=== PATIENT | female | born 2000 | race Two or more races ===

== ENCOUNTER 2020-08-26 01:19 | Emergency (ER) | payer BC ==
[~2020-08-26] VITALS: Ht 154.9 cm; Wt 83.0 kg
--- NOTE | 2020-08-26 01:20 | NUR ---
FAMILY IN LOBBY
[2020-08-26] MEDS ORDERED: CHARCOAL/SORBITOL 50 GM/240 ML PO ONE (01:30)
--- NOTE | 2020-08-26 01:37 | NUR ---
PT BIB [facility] FOR [facility]. PT REPORTS SHE TOOK UNKNOWN AMOUNT OF TRAZADONE TO HURT HERSELF. DR HANSON TO BEDSIDE. 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 NSR NOTED. VS STABLE. SITTER AT DOOR. WILL CONTINUE TO MONITOR.
--- NOTE | 2020-08-26 01:45 | NUR ---
PT RESTING IN ROOM. NO ACUTE DISTRESS NOTED. SITTER AT DOOR. WILL CONTINUE TO MONITOR.
[2020-08-26 01:47] LABS: BASOPHILS % (AUTO) 1 % (0-1); EOSINOPHILS % (AUTO) 1 % (1-7); LYMPHOCYTES % (AUTO) 35 % (22-44); MEAN CORPUSCULAR HEMOGLOBIN 28.9 pg (27.0-34.8); MEAN CORPUSCULAR HGB CONC 33.3 g/dL (32.4-35.8); MEAN PLATELET VOLUME 8.6 fL (7.4-10.4); MONOCYTES % (AUTO) 8 % (2-9); NEUTROPHILS % (AUTO) 55 % (42-75); PLATELET COUNT 346 x10^3/uL (130-400); RED BLOOD COUNT 4.77 x10^6/uL (3.82-5.3); RED CELL DISTRIBUTION WIDTH 13.5 % (9.6-15.2)
[2020-08-26 01:50] LABS: MD NO
[2020-08-26 01:56] LABS: ALANINE AMINOTRANSFERASE 26 U/L (12-78); ANION GAP 6 mmol/L (5-15); CALCIUM 8.9 mg/dL (8.5-10.1); CHLORIDE 112 mmol/L (98-107)
[2020-08-26 02:01] LABS: ALKALINE PHOSPHATASE 89 U/L (45-117); BILIRUBIN,TOTAL 0.2 mg/dL (0.2-1.0); CREATININE 0.64 mg/dL (0.55-1.02); TOTAL PROTEIN 7.6 g/dL (6.4-8.2)
[2020-08-26 02:02] LABS: SALICYLATE LEVEL < 1.7 mg/dL (2.8-20.0)
--- NOTE | 2020-08-26 02:10 | NUR ---
BEDSIDE REPORT GIVEN TO KATIA NAVA
--- NOTE | 2020-08-26 02:17 | NUR ---
POSION CONTROL CONTACTED REGARDING PATIENT'S HOME MEDICATIONS; KATIA WYNNE
--- NOTE | 2020-08-26 02:24 | NUR ---
PATIENT'S AT HOME MEDICATIONS INCLUDE: XANAX 0.25MG LITHIUM 450MG X2 AT NIGHT VRAYLAR 1.5MG AT NIGHT AMBIEN 10MG AT NIGHT TRAZADONE 50MG AT NIGHT
--- NOTE | 2020-08-26 02:27 | NUR ---
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 MONITOR FOR QT PROLONG AND TREAT WITH IV MAG.
--- NOTE | 2020-08-26 03:10 | NUR ---
PT RESTING IN BED, PT ON MONITOR WITH PT VSS. PT DENIED ANY WANTS OR NEEDS AT THIS TIME. PT DENIED ANY LUIS ALBERTO SYMTOMS. PT STATED "SHE WAS JUST TIRED"
--- NOTE | 2020-08-26 04:30 | NUR ---
PT RESTING IN BED, PT ON MONITOR WITH PT VSS. PT DENIED ANY WANTS OR NEEDS AT THIS TIME. PT DENIED ANY LUIS ALBERTO SYMTOMS. PT AGIAN STATED "SHE WAS JUST TIRED"
[2020-08-26 05:01] LABS: AMPHETAMINE SCREEN, URINE Negative (Negative); BARBITURATE SCREEN, URINE Negative (Negative); BENZODIAZEPINE SCREEN, URINE Negative (Negative); CANNABINOID SCREEN, URINE Negative (Negative); COCAINE SCREEN, URINE Negative (Negative); METHADONE SCREEN, URINE Negative (Negative); OPIATE SCREEN, URINE Negative (Negative)
--- NOTE | 2020-08-26 06:41 | NUR ---
REC'D REPORT FROM KATIA NAVA. PT RESTING IN BED. SITTER AT DOOR.
--- NOTE | 2020-08-26 06:58 | NUR ---
PT RESTING IN BED, PT IN SI SECURE ROOM WITH SITTER AT DOOR, PT DENIED ANY LUIS ALBERTO ISSUES AT THIS TIME.
--- NOTE | 2020-08-26 07:52 | NUR ---
patient in bed on monitor rails up. report from chelita. patient awaiting telepsych. she is oriented and detailing of her depression since 11. she states diagnosed with bipolar at 19 and that she has struggled with this for a long time. states not feeling suicidal now.
--- NOTE | 2020-08-26 08:32 | NUR ---
GAVE BREAKFAST, ATE ALL
--- NOTE | 2020-08-26 09:33 | NUR ---
LET PATIETN FAMILY VISIT, DAD AT BEDSIDE.
--- NOTE | 2020-08-26 10:26 | NUR ---
DAD AT BEDSIDE. THEY ARE CHATTING CALMLY
--- NOTE | 2020-08-26 11:08 | NUR ---
ordered meal tray.
--- NOTE | 2020-08-26 11:33 | NUR ---
ronan talking to pt
--- NOTE | 2020-08-26 11:48 | NUR ---
patients father went home to get mom and will return. patient is calm in bed.
[2020-08-26 11:53] VITALS: BP 112/78
--- NOTE | 2020-08-26 11:56 | NUR ---
helping patient get belongings. tbd once parents here to pick her up. gave her lunch tray
--- NOTE | 2020-08-26 12:39 | NUR ---
still waiting on parents to take her home. belongings returned.
--- NOTE | 2020-08-26 13:05 | NUR ---
MOM HERE. DISCHARGE REVIEWED.
== END 2020-08-26 13:23 | disposition home or self-care (01) ==
LOC: ED 02:10
DX: T43.211A Poisoning by selective serotonin and norepinephrine reuptake inhibitors, accidental (unintentional), initial encounter (principal); R94.31 Abnormal electrocardiogram [ECG] [EKG]
CPT/HCPCS: 36415; 80053; 80178; 80299; 80307; 80320; 80329; 84703; 85025; 93005; 99285; G0480

== ENCOUNTER 2020-11-14 05:12 | Emergency (ER) | payer BC ==
[~2020-11-14] VITALS: Ht 154.9 cm; Wt 91.9 kg
[2020-11-14 05:14] VITALS: BP 126/61
[2020-11-14] MEDS ORDERED: ACETAMINOPHEN 500 MG TABLET ONE (05:47)
[2020-11-14] MEDS ORDERED: IBUPROFEN 800 MG TABLET ONE (05:47)
[2020-11-14] MEDS ORDERED: ACETAMINOPHEN 325 MG TABLET PO ONE (06:00)
[2020-11-14] MEDS ORDERED: IBUPROFEN 200 MG TABLET PO ONE (06:00)
--- NOTE | 2020-11-14 06:02 | NUR ---
Pt to ER with c/o of having QUAN, SOB, CP after getting her covid vaccine yesterday. EKG done in triage, pt room. Pt in gown, on monitor. Warm blanket given. EKG done. Pt medicated per order Pt with intermittent CP. Physician aware. No new orders.
--- NOTE | 2020-11-14 06:54 | NUR ---
REPORT FROM JAVAD. PT RESTING.
--- NOTE | 2020-11-14 07:15 | NUR ---
pt ambulated to bathroom w steady gait
--- NOTE | 2020-11-14 07:44 | NUR ---
Patient/Caregiver given discharge instructions and they have confirmed that they understand the instructions. Patient ambulatory with steady gait.
== END 2020-11-14 07:45 | disposition home or self-care (01) ==
LOC: ED 05:39
DX: R06.00 Dyspnea, unspecified (principal); M79.10 Myalgia, unspecified site; T88.1XXA Other complications following immunization, not elsewhere classified, initial encounter; R00.0 Tachycardia, unspecified
CPT/HCPCS: 71045; 93005; 99283

== ENCOUNTER 2021-02-12 22:00 | Emergency (ER) | payer BC ==
[~2021-02-12] VITALS: Ht 154.9 cm; Wt 91.3 kg
[2021-02-12 22:42] LABS: MEAN CORPUSCULAR HEMOGLOBIN 29.4 pg (27.0-34.8); MEAN CORPUSCULAR HGB CONC 33.6 g/dL (32.4-35.8); MEAN PLATELET VOLUME 9.3 fL (7.4-10.4); PLATELET COUNT 223 x10^3/uL (130-400); RED BLOOD COUNT 5.16 x10^6/uL (3.82-5.3); RED CELL DISTRIBUTION WIDTH 14.5 % (9.6-15.2)
[2021-02-12 22:52] LABS: ANION GAP 5 mmol/L (5-15); CALCIUM 8.9 mg/dL (8.5-10.1); CHLORIDE 110 mmol/L (98-107)
[2021-02-12 22:57] LABS: CREATININE 0.77 mg/dL (0.55-1.02)
[2021-02-12 23:11] LABS: BAND#(MANUAL) 0.04 x10^3/uL; BANDS%(MANUAL) 1 % (0-7); BASOS#(MANUAL) 0.04 x10^3/uL (0-0.3); BASOS% (MANUAL) 1 % (0-1); EOS#(MANUAL) 0.04 x10^3/uL (0.0-0.8); EOS% (MANUAL) 1 % (1-7); LYMPH#(MANUAL) 1.58 x10^3/uL (1-6.1); LYMPHS% (MANUAL) 45 % (22-44); MONOS#(MANUAL) 0.25 x10^3/uL (0.3-2.7); MONOS% (MANUAL) 7 % (2-9); MYELOCYTES# (MANUAL) 0.04 x10^3/uL (0-0); MYELOCYTES% (MANUAL) 1 % (0-0); REACTIVE LYMPHS # (MANUAL) 0.28 x10^3/uL (0-0); REACTIVE LYMPHS % (MANUAL) 8 % (0-0); SEG#(MANUAL) 1.26 x10^3/uL (1.8-8); SEGS% (MANUAL) 36 % (42-75)
[2021-02-12 23:12] LABS: <PLATELET ESTIMATE> ADEQUATE; ANISOCYTOSIS 1+; POLYCHROMASIA 1+
[2021-02-12 23:13] LABS: LARGE PLATELETS 1+
--- NOTE | 2021-02-13 01:41 | NUR ---
PT STATES SHE FELT NAUSEATED, FEVER & LOWER BACK PAIN/CRAMPING ON TUESDAY, C VAGINAL BLEEDING. 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 LMP 01/22, STATES POSSIBLY PG. DID NOT TAKE A HOME PG TEST. AB0 COLT [facility] WAS JUST AT BEDSIDE. PT CURRENTLY IN BATHROOOBTAINING A UA SAMPLE.
--- NOTE | 2021-02-13 02:05 | NUR ---
PT BACK IN ROOM. ATTACHED TO MONITORS. YOUSUF. CLAUDIA. WCGRACE. BF AT BEDSIDE.
[2021-02-13 02:33] LABS: MICROSCOPIC INDICATED
[2021-02-13 02:43] VITALS: BP 110/66
--- NOTE | 2021-02-13 02:45 | NUR ---
BREAK RN: Patient is resting comfortably in bed, eyes closed, even and unlabored respirations. Bed in lowest, rails engaged, call light on lap. Vital Signs within normal limits. WCTM.
--- NOTE | 2021-02-13 02:57 | NUR ---
Patient given discharge instructions and they have confirmed that they understand the instructions. Patient ambulatory with steady gait. NAD, all questions answered appropriately, denies additional needs at this time. No personal belongings left in room after discharge.
== END 2021-02-13 03:21 | disposition home or self-care (01) ==
LOC: ED 22:30
DX: M54.5 Low back pain (principal); B34.9 Viral infection, unspecified; R10.30 Lower abdominal pain, unspecified
CPT/HCPCS: 36415; 76830; 80048; 81001; 82040; 84703; 85025; 86901; 87086; 99284

== ENCOUNTER 2021-06-01 17:53 | Emergency (ER) | payer BC ==
[~2021-06-01] VITALS: Ht 154.9 cm; Wt 88.5 kg
[2021-06-01 19:01] LABS: BASOPHILS % (AUTO) 1 % (0-1); EOSINOPHILS % (AUTO) 2 % (1-7); LYMPHOCYTES % (AUTO) 34 % (22-44); MEAN CORPUSCULAR HEMOGLOBIN 29.2 pg (27.0-34.8); MEAN CORPUSCULAR HGB CONC 33.1 g/dL (32.4-35.8); MEAN PLATELET VOLUME 8.9 fL (7.4-10.4); MONOCYTES % (AUTO) 5 % (2-9); NEUTROPHILS % (AUTO) 58 % (42-75); PLATELET COUNT 376 x10^3/uL (130-400); RED BLOOD COUNT 5.12 x10^6/uL (3.82-5.3); RED CELL DISTRIBUTION WIDTH 13.2 % (9.6-15.2)
[2021-06-01 19:03] LABS: ALBUMIN 4.4 g/dL (3.4-5.0); ANION GAP 4 mmol/L (5-15); CALCIUM 9.1 mg/dL (8.5-10.1); CHLORIDE 109 mmol/L (98-107); CREATININE 0.71 mg/dL (0.55-1.02)
[2021-06-01 19:08] LABS: ALANINE AMINOTRANSFERASE 31 U/L (12-78); ALKALINE PHOSPHATASE 98 U/L (45-117); BILIRUBIN,TOTAL 0.2 mg/dL (0.2-1.0); TOTAL PROTEIN 8.5 g/dL (6.4-8.2)
--- NOTE | 2021-06-01 19:44 | NUR ---
CANVAS MARKER: PT. TO ROOM FROM LOBBY AT THIS TIME.
--- NOTE | 2021-06-01 19:53 | NUR ---
PT REPROTS HAVING DIARRHEA WITH ABDOMINAL CRAMPS FOR 3 MONTHS CAUSING A 15- 20 POUND DROP IN WEIGHT. PT DENEIS ANY OTHER SYMPTOMS. NOTIFIED PT TO LET ME KNOW WHEN SHE MIGHT HAVE DIARRHEA TO COLLECT A STOOL SAMPLE. PT ISS [phone] NAD.
[2021-06-01 20:59] LABS: HCG UR SG 1.026 (1.003-1.030); MICROSCOPIC INDICATED
--- NOTE | 2021-06-01 21:12 | NUR ---
PT PROVIDED FOOD AND SOAD TO STIMULATE BM. PT STILL UNABLE TO USE RESTROOM
[2021-06-01 21:34] VITALS: BP 106/64
== END 2021-06-01 21:36 | disposition home or self-care (01) ==
LOC: ED 18:00
DX: R19.7 Diarrhea, unspecified (principal); R10.9 Unspecified abdominal pain
CPT/HCPCS: 36415; 80053; 81001; 81025; 85025; 87086; 99283